=== PATIENT | female | born 1950 | race Caucasian/White ===

== ENCOUNTER 2017-08-09 15:46 | Emergency (ER) | payer OTHER ==
[~2017-08-09] VITALS: Ht 167.6 cm; Wt 72.0 kg
[~2017-08-09 15:46] MED LIST: ASPIR 8181 M1 PO; ASPIRIN81 M1 PO; ATORVASTATIN CA10 MG PO; CALCARB 600 W-1 EACH PO; CALCIUM 600 +1 EAC4 PO; DAILY MULTIPLE1 EACH PO; DICLOFENAC SODI75 MG PO; DULERA 100 MCG/13 GM IH; GABAPENTIN300 MG PO; LEVOTHYROXINE75 MCG PO; LOVAZA1 GM PO; NAPROSYN500 MG PO; NASAL SPRAY30 M1 NS; NASONEX17 GM BOTH NARES; NEURONTIN300 MG PO; NEXIUM40 MG PO; PERCOCET 5/31 TABLET PO; POTASSIUM CITR15 MEQ PO; PREDNISONE20 MG PO; PROZAC20 MG PO; SINGULAIR10 MG PO; UROCIT-K15 MEQ PO; ZETIA10 MG PO; ZYRTEC
[2017-08-09 16:45] LABS: HEMATOCRIT 35.5 % (36.0-46.0); HEMOGLOBIN 11.4 G/DL (11.9-15.5); MCHC 32.1 G/DL (30.0-36.0); MCV 84.1 FL (83-99); PLATELET COUNT 254 K/uL (156-360); RBC DIS.WIDTH-CV 15.7 % (11.8-14.6); RBC DIS.WIDTH-SD 48.3 % (39-53); RED BLOOD COUNT 4.22 M/uL (3.80-5.20)
[2017-08-09 16:55] LABS: CHLORIDE 109 mEq/L (99-109); POTASSIUM 3.9 mEq/L (3.7-5.4); SODIUM 141 mEq/L (136-147)
[2017-08-09 16:56] LABS: GLUCOSE 72 mg/dL (70-99)
[2017-08-09 17:00] LABS: CREATININE 0.8 mg/dL (0.6-1.3); GFR ESTIMATE (CALCULATED) > 59 mL/min/
[2017-08-09 17:01] LABS: UREA NITROGEN (BUN) 19 mg/dL (9-23)
[2017-08-09 17:05] LABS: TROP-I INTERPRETATION NEGATIVE; TROPONIN-I 0.01 ng/mL (0.0-0.30)
[2017-08-09 19:21] LABS: TROP-I INTERPRETATION NEGATIVE; TROPONIN-I < 0.01 ng/mL (0.0-0.30)
[2017-08-09] MEDS ORDERED: ULTRAM50 MG PO (19:44)
[2017-08-09 20:07] VITALS: BP 134/92
== END 2017-08-09 20:13 | disposition home or self-care (01) ==
LOC: EME 15:46
PROVIDERS: Emergency Medicine
DX: R07.9 Chest pain, unspecified (principal); M54.2 Cervicalgia; M25.512 Pain in left shoulder; M79.7 Fibromyalgia; I45.10 Unspecified right bundle-branch block; R94.31 Abnormal electrocardiogram [ECG] [EKG]; K21.9 Gastro-esophageal reflux disease without esophagitis; E78.5 Hyperlipidemia, unspecified; E03.9 Hypothyroidism, unspecified; J45.909 Unspecified asthma, uncomplicated; Z79.82 Long term (current) use of aspirin; Z88.8 Allergy status to other drugs, medicaments and biological substances
CPT/HCPCS: 71046; 72040; 73030; 80048; 84484; 85027; 93005; 99281; 99284